=== PATIENT | female | born 1975 | race Hispanic/Latino ===

== ENCOUNTER 2017-12-13 11:47 | Emergency (ER) | payer SELFPAY ==
[2017-12-13 12:22] LABS: #Basophils 0.1 thou/uL (0.0-0.2); #Eosinphils 0.1 thou/uL (0.0-0.7); #Lymphocytes 2.3 thou/uL (1.20-3.40); #Monocytes 0.8 thou/uL (0.11-0.59); #Neutrophils 5.5 thou/uL (1.40-6.50); %Basophils 0.9 % (0.0-1.0); %Eosinophils 1.2 % (0.0-10.0); %Lymphocytes 26.1 % (21.0-51.0); %Monocytes 9.2 % (0.0-10.0); %Neutrophils 62.5 % (42.0-75.0); Hemoglobin 13.2 g/dL (12.0-16.0); Mean Corpuscular Hemoglobin 28.3 pg (27.0-31.0); Mean Corpuscular Volume 85.7 fL (78.0-98.0); Mean Platelet Volume 6.4 fL (7.4-10.4); Platelet Count 344 thou/uL (130-400); RBC Distribution Width 12.7 % (11.5-14.5); Red Blood Cell (RBC) Count 4.66 mill/uL (4.20-5.40); White Blood Cell (WBC) Count 8.9 thou/uL (4.8-10.8)
[2017-12-13 12:34] LABS: ALT (SGPT) 22 U/L (8-55); AST (SGOT) 16 U/L (5-34); Albumin 4.2 g/dL (3.5-5.0); Alkaline Phosphatase 49 U/L (40-150); Anion Gap 12 mmol/L (10-20); BUN (Urea Nitrogen) 9 mg/dL (7.0-18.7); Bilirubin, Total 0.5 mg/dL (0.2-1.2); Calc. Creatinine Clearance 0 mL/min (70-130); Calcium 9.3 mg/dL (7.8-10.44); Carbon Dioxide 24 mmol/L (22-29); Chloride 103 mmol/L (98-107); Estimated GFR-MDRD 88; Globulin 3.1 g/dL (2.4-3.5); Glucose 96 mg/dL (70-105); Potassium 3.6 mmol/L (3.5-5.1); Protein, Total 7.3 g/dL (6.0-8.3); Sodium 135 mmol/L (136-145)
[2017-12-13 13:43] LABS: Bilirubin Negative (Negative); Blood, Urine Trace (Negative); Clarity CLOUDY (Clear); Glucose, Urine (Dipstick) Negative (Negative); Leukocyte Negative (Negative); Nitrite Negative (Negative); Protein, Urine (Dipstick) Negative (Neg-Trace); Specific Gravity, Urine 1.005 (1.002-1.036); Urobilinogen 0.2 mg/dL (0.2-1.0)
[2017-12-13 13:49] LABS: Bacteria/HPF Rare-Few HPF (None Seen); Hyaline Casts/LPF 0-3 HYALINE CAST LPF (0-3 Hyaline); Pathc Cast-AUWi Flag 0.14 (0-2.49); RBC/HPF 0-3 HPF (0-3); WBC/HPF 0-3 HPF (0-3)
--- NOTE | 2017-12-13 14:13 | ULT ---
PELVIC ULTRASOUND: Date: 12/13/17 COMPARISON: None. HISTORY: Vaginal bleeding. TECHNIQUE: Multiplanar Barber scale and color Doppler images were obtained in a transabdominal and transvaginal pe ic ultrasound. Spectral analysis of the Doppler waveforms of the ovaries were performed. FINDINGS: There is a single, live intrauterine . A heart rate was detected at approximately 165 beats/minute. A normal appearing yolk sac is seen. [place]-rump length of the pole is 2.11 cm, wh ich estimates the gestational age at 8 weeks and 5 days. There is a small hypoechoic region in the uterus adjacent to the gestational sac. This is nonspecific but could represent a small fibroid. No free fluid is seen in the pelvis. Both ovaries are normal in size and appearance and demonstrate n ormal internal flow. A dominant follicle is seen on the right measuring 2.8 cm in greatest dimension. IMPRESSION: 1. Single, live intrauterine , with estimated age at 8 weeks and 5 days. 2. Possible small uterine fibroid. POS: [facility]
== END 2017-12-13 14:23 | disposition home or self-care (01) ==
LOC: ERS 11:47
DX: O09.521 Supervision of elderly multigravida, first trimester (principal); O99.89 Other specified diseases and conditions complicating pregnancy, childbirth and the puerperium; R10.9 Unspecified abdominal pain; I10 Essential (primary) hypertension; Z3A.08 8 weeks gestation of pregnancy
CPT/HCPCS: 76856; 80053; 81003; 81015; 84702; 85025; 86900; 86901

== ENCOUNTER → 2018-03-05 | Day surgery (SDC) | payer OTHER ==
[2018-03-05 21:08] LABS: Bilirubin Negative (Negative); Blood, Urine Negative (Negative); Clarity CLEAR (Clear); Glucose, Urine (Dipstick) Negative (Negative); Leukocyte Negative (Negative); Nitrite Negative (Negative); Protein, Urine (Dipstick) Negative (Neg-Trace); Specific Gravity, Urine 1.003 (1.002-1.036); Urobilinogen 0.2 mg/dL (0.2-1.0)
[2018-03-05 21:14] LABS: #Eosinphils 0.2 thou/uL (0.0-0.7); #Monocytes 0.8 thou/uL (0.11-0.59); #Neutrophils 6.6 thou/uL (1.40-6.50); %Basophils 0.4 % (0.0-1.0); %Eosinophils 1.6 % (0.0-10.0); %Lymphocytes 20.6 % (21.0-51.0); %Monocytes 7.9 % (0.0-10.0); %Neutrophils 69.5 % (42.0-75.0); Hemoglobin 12.3 g/dL (12.0-16.0); Mean Corpuscular HGB CONC 34.1 g/dL (32.0-36.0); Mean Corpuscular Hemoglobin 29.2 pg (27.0-31.0); Mean Corpuscular Volume 85.5 fL (78.0-98.0); Mean Platelet Volume 6.6 fL (7.4-10.4); Platelet Count 337 thou/uL (130-400); RBC Distribution Width 12.5 % (11.5-14.5); White Blood Cell (WBC) Count 9.5 thou/uL (4.8-10.8)
[2018-03-05 21:43] LABS: ALT (SGPT) 23 U/L (8-55); AST (SGOT) 15 U/L (5-34); Albumin 3.5 g/dL (3.5-5.0); Alkaline Phosphatase 50 U/L (40-150); Anion Gap 11 mmol/L (10-20); BUN (Urea Nitrogen) 9 mg/dL (7.0-18.7); Bilirubin, Total 0.2 mg/dL (0.2-1.2); Calc. Creatinine Clearance 0 mL/min (70-130); Calcium 9.5 mg/dL (7.8-10.44); Carbon Dioxide 24 mmol/L (22-29); Chloride 106 mmol/L (98-107); Estimated GFR-MDRD 88; Globulin 3.2 g/dL (2.4-3.5); Glucose 116 mg/dL (70-105); Lipase 34 U/L (8-78); Potassium 3.7 mmol/L (3.5-5.1); Protein, Total 6.7 g/dL (6.0-8.3); Sodium 137 mmol/L (136-145)
--- NOTE | 2018-03-05 22:35 | ULT ---
OB ULTRASOUND: 03/05/18 HISTORY: Periumbilical pain. No vaginal bleeding. Real time imaging of the pelvis shows a single viable intrauterine in a breech presentation . The placenta is anterior in location without evidence of previa. heart rate is 144 beats per minute. Amniotic fluid is adequate for this stage of . Per the referring physician request, no measurements were obtained. Imaging of the periumbilical region in area of patient's pain, failed to definitely demonstrate any h ernia. IMPRESSION: 1. Single viable intrauterine in a breech presentation. 2. Placenta which is anterior in location without evidence of previa. POS: [facility]
--- NOTE | 2018-03-07 11:21 | PRG ---
DATE OF SERVICE: 03/05/2018 OB ER ENCOUNTER PRIMARY CUSTOM GRINDER: Ric Hernandez MD CHIEF COMPLAINT: Abdominal pain. HISTORY OF PRESENT ILLNESS: The patient is a 42-year-old, G3, P2 female with an intrauterine at 19 weeks and 5 days, who presented to the emergency room with onset of abdominal pain. She was subsequently cleared down there for any acute conditions requiring immediate attention and was sent to Labor and Delivery for monitoring. The patient reports that she was diagnosed earlier today with an abdominal umbilical hernia and that is where she has been having her primary pain. She reports that she has been told that there is some fat in there, but no bowel. She also reports that she has recently been diagnosed with a cellulitis in her mid abdomen and has been recently placed on antibiotics. The patient denies any uterine cramping or bleeding at this time. The patient denies any recent illness, fever, fall, headache, chest pain, shortness of breath, diarrhea, or constipation. The patient does report some nausea. Denies vomiting. She denies any new rashes, hip problems, knee problems, or muscle weakness. Denies vaginal bleeding, leakage of fluid, or urinary urgency. PAST MEDICAL HISTORY: Chronic hypertension, off medications at this time. PAST SURGICAL HISTORY: section. SOCIAL HISTORY: Denies drug, alcohol, or tobacco use. OB LABS: Unavailable at the time of dictation. ALLERGIES: NO KNOWN DRUG ALLERGIES. MEDICATIONS: None. PHYSICAL EXAMINATION: VITAL SIGNS: Blood pressure 111/60, heart rate is 75, respiratory rate is 20, and temperature 98.4. GENERAL: The patient appears to be in no acute distress. She is alert, oriented, cooperative, and pleasant to interact with. HEENT: Head is normocephalic and atraumatic. LUNGS: Clear to auscultation bilaterally. HEART: Has a regular rate and rhythm. ABDOMEN: Gravid and soft. She does have some tenderness in the periumbilical area that is superficial in nature, and again, this does not appear to be related to the itself. ultrasounds performed in the emergency room showed Doppler heart tones in the 140s and intrauterine in breech presentation with an anterior placenta without previa. LABORATORY DATA: Labs showed a white count of 9.5, hemoglobin 12.3, hematocrit 35.9, and platelets 337,000, sodium of 137, potassium of 3.7, creatinine of 0.73, AST of 15, ALT of 23, lipase of 34. Urine was negative for protein, ketones, nitrites, and leukocyte esterase. ASSESSMENT AND PLAN: The patient is a 42-year-old multiparous female with an intrauterine at 19 weeks and 6 days. She was having some superficial umbilical pain, likely related to a previously diagnosed umbilical hernia, which has been thoroughly evaluated by the emergency room physician downstairs and not seen to be of any urgent medical matter to the patient this evening. The patient is comfortable being discharged to home. She has instructions to follow up with her primary OB, Dr. Ric Hernandez, as scheduled. Job ID: [id number] MTDD
== END ==
LOC: ERS 20:26 → L&D/OP 22:24
PROVIDERS: ATTEND Family Medicine
DX: O99.89 Other specified diseases and conditions complicating pregnancy, childbirth and the puerperium (principal); R10.9 Unspecified abdominal pain; O16.2 Unspecified maternal hypertension, second trimester; O99.612 Diseases of the digestive system complicating pregnancy, second trimester; K42.9 Umbilical hernia without obstruction or gangrene; Z3A.19 19 weeks gestation of pregnancy; Z98.890 Other specified postprocedural states
CPT/HCPCS: 36415; 76815; 80053; 81003; 83690; 84702; 85025; 86900; 86901; 99281

== ENCOUNTER 2018-07-01 14:22 | Day surgery (SDC) | payer OTHER ==
[2018-07-01 14:58] VITALS: BMI 36.7
--- NOTE | 2018-07-01 17:22 | ULT ---
EXAM: NONCONTRAST BIOPHYSICAL PROFILE 07/01/18 HISTORY: Chronic maternal hypertension. COMPARISON: None. TECHNIQUE: Nonstress biophysical profile is performed. FINDINGS: Cervix could not be assessed due to shadowing. Single intrauterine gestation with heart tones of 145 beats per minute. Anterior placenta. Vert ex presentation. Amniotic fluid index is 11.6 cm. heart tones with a rate of 145 beats per minute. Nonstress biophysical profile: tone - 2 breathing - 2 movement - 2 Amniotic fluid - 2 Total score - 8 out of 8. IMPRESSION: Nonstress biophysical profile with a total score of [address] Aldridge was present while the examination was performed. Verbal results were given to Dr. Aldridge by the acid treater. POS: [facility]
--- NOTE | 2018-07-01 18:01 | PRG ---
DATE OF SERVICE: 07/01/2018 PRIMARY OB: Dr. Ric Hernandez. CHIEF COMPLAINT: Nonreactive NST in the office. HISTORY OF PRESENT ILLNESS: The patient is a 42-year-old G3, P2, with an intrauterine at 36 weeks and 4 days with a reported past medical history of chronic hypertension per the nursing staff. The patient denies being on any medications during this ; however, was taking medication in between her last and this one for blood pressure issues. She denies any other complaints today. Denies any fever, fall, headache, chest pain, shortness of breath, vomiting, diarrhea, constipation, hip problems, knee problems, muscle weakness, vaginal bleeding, leakage of fluid, urinary urgency. The patient does report she has been having more nausea throughout this , but more so recently. PAST MEDICAL HISTORY: Chronic hypertension. ALLERGIES: NO KNOWN DRUG ALLERGIES. MEDICATIONS: vitamins. PAST SURGICAL HISTORY: One prior . OBSTETRIC HISTORY: History of preeclampsia with her first . OB LABS: Blood type is A positive. Antibody screen is negative. RPR is nonreactive in the first and third trimester. HIV is nonreactive in the first and third trimester. Hepatitis B surface antigen is negative. She is rubella immune. GC and Chlamydia negative. UDS is negative and she is GBS positive. REVIEW OF SYSTEMS: Per HPI. PHYSICAL EXAMINATION: VITAL SIGNS: Blood pressure is 126/71, heart rate of 92, respiratory rate of 20, saturating 100% on room air, and temperature 98.4. GENERAL: She appears to be in no acute distress. She is alert, oriented, cooperative, and pleasant to interact with. HEAD: Normocephalic and atraumatic. LUNGS: Clear to auscultation bilaterally. HEART: Regular rate and rhythm. ABDOMEN: Soft, gravid, nontender. EXTREMITIES: Nontender and nonedematous. heart tracing performed and NST demonstrating a baseline in the 140s with moderate long-term variability, 10 x 10 accelerations. Toward the end of the strip, it looks like she had a couple 15 x 15 accelerations. Bedside ultrasound was performed for biophysical profile which was 8/8. Normal fluid. ASSESSMENT AND PLAN: The patient is a 42-year-old G3, P2 female with chronic hypertension who was sent to Labor and Delivery for nonreactive NST. The patient has reactive NST and BPP 8/8 here in the Labor and Delivery with normal fluid levels. She has been discharged home with reassurance and has instructions to follow up with her primary OB as scheduled. No evidence of worsening disease at this time. Job ID: [id number]
== END 2018-07-01 16:58 | disposition home health service (06) ==
LOC: L&D/OP 14:22
PROVIDERS: ATTEND Family Medicine
DX: O36.8330 Maternal care for abnormalities of the fetal heart rate or rhythm, third trimester, not applicable or unspecified (principal); O10.013 Pre-existing essential hypertension complicating pregnancy, third trimester; Z3A.36 36 weeks gestation of pregnancy; Z79.899 Other long term (current) drug therapy
CPT/HCPCS: 59025; 76819; 99282

== ENCOUNTER 2018-07-05 13:58 | Day surgery (SDC) | payer OTHER ==
[2018-07-05 14:36] VITALS: BP 140/73; TEMP 99.2; BMI 36.9
--- NOTE | 2018-07-05 14:39 | PDOC.LDHP ---
Labor and Delivery H&P HPI: HPI: This is a 42 yo at 37.1 wks by LMP/1TUS presenting for OTT, N/V. She has a history of cHTN, additionally she had pre-e with first . The patinet states headache starting 2 days ago and then this morning she vomited x2 and felt malaised which led her to come in. She describes headache as a pressure on the left side and nothing really seems to make it better. Denies SOB or swelling. She affirms movement, denies cxns, denies ROM, denies bleeding/discharge. History: OB hx: cHTN, C/S x1, hx of pre-e with 1st PMH: HTN, was on HCTZ before PSH: as above Meds: PNV Soc Hx: denies smoking, alcohol, drugs Blood type: A+ Abs screen neg Hep b neg RPR/HIV neg Rubella immune PAP NILM GC/CT neg Quad neg 1 hr GCT: 138 GBS: positive REVIEW OF SYSTEMS: Gen: no fever, chills, or sweats Neuro: see hpi Eyes: no scotoma ENT: no hearing changes, no sore throat, no runny nose Resp: no cough, no SOB, no wheeze Card: denies chest pain, no palpitations GI: no N/V/D, no abdominal pain : no dysuria, no hematuria MSK: no myalgias, no joint pain/stiffness Heme: no easy bruising/bleeding Skin: no rash, no erythema PHYSICAL EXAMINATION: General: NAD, alert and oriented x3 HEENT: PERRLA, EOMI, normal sclera, oropharynx without erythema or exudate Neck: Supple. Full ROM. Heart/Cardiovascular System: RRR, Cap refill < 3 seconds, no rub, no murmur Lungs/Respiratory System: clear to auscultation bilaterally. No increased work of breathing. Room air. Abdomen/Gastro-Intestinal System: no abdominal tenderness, normal bowel sounds, Gravid Extremeties: Warm extremities. No cyanosis or edema. Neuro: No gross deficits appreciated. CN 2-12 grossly intact Psychiatry: Awake, Alert and cooperative with exam Skin/ Integumentory: No lesions, rashes, or ulcers Musculoskeletal: Full ROM A/P: 42 yo at 37.1 wks by LMP/1TUS # cHTN w/ OTT will order pre-e labs to r/o superimposed pre-e monitor, accels present, no cxns, moderate variability cl/th/high on SVE Allergies/Adverse Reactions: Allergies Allergy/AdvReac Type Severity Reaction Status Date / Time No Known Allergies Allergy Verified 07/01/18 14:59 Addendum - Attending - Attending Attestation Date/Time: 07/05/18 8034 I personally evaluated the patient and discussed the management with Dr. Crooks. I agree with the History, Examination, Assessment and Plan documented above.
[2018-07-05 15:31] LABS: #Basophils 0.1 thou/uL (0.0-0.2); #Lymphocytes 1.1 thou/uL (1.20-3.40); #Monocytes 0.5 thou/uL (0.11-0.59); #Neutrophils 8.7 thou/uL (1.40-6.50); %Basophils 0.6 % (0.0-1.0); %Eosinophils 0.5 % (0.0-10.0); %Lymphocytes 10.8 % (21.0-51.0); %Monocytes 5.1 % (0.0-10.0); %Neutrophils 83.1 % (42.0-75.0); Hemoglobin 12.9 g/dL (12.0-16.0); Mean Corpuscular HGB CONC 34.3 g/dL (32.0-36.0); Mean Corpuscular Hemoglobin 30.4 pg (27.0-31.0); Mean Corpuscular Volume 88.8 fL (78.0-98.0); Mean Platelet Volume 6.4 fL (7.4-10.4); Platelet Count 315 thou/uL (130-400); RBC Distribution Width 12.7 % (11.5-14.5); Red Blood Cell (RBC) Count 4.25 mill/uL (4.20-5.40); White Blood Cell (WBC) Count 10.4 thou/uL (4.8-10.8)
[2018-07-05] MEDS ORDERED: Ondansetron ODT 4 MG TAB PO PRN (15:36)
[2018-07-05] MEDS ORDERED: Acetaminophen 325 MG TAB PO SCH (15:45)
[2018-07-05 16:08] LABS: ALT (SGPT) 12 U/L (8-55); AST (SGOT) 13 U/L (5-34); Albumin 3.3 g/dL (3.5-5.0); Alkaline Phosphatase 91 U/L (40-150); Anion Gap 12 mmol/L (10-20); BUN (Urea Nitrogen) 9 mg/dL (7.0-18.7); Bilirubin, Total 0.3 mg/dL (0.2-1.2); Calc. Creatinine Clearance 140 mL/min (70-130); Calcium 9.1 mg/dL (7.8-10.44); Carbon Dioxide 24 mmol/L (22-29); Chloride 104 mmol/L (98-107); Estimated GFR-MDRD 83; Globulin 2.8 g/dL (2.4-3.5); Glucose 133 mg/dL (70-105); Potassium 4.4 mmol/L (3.5-5.1); Protein, Total 6.1 g/dL (6.0-8.3); Sodium 136 mmol/L (136-145)
[2018-07-05 16:36] LABS: Creatinine, Urine 70.81 mg/dL (47-110); Protein, Urine Random Quant Less than 10 mg/dL (1-14)
--- NOTE | 2018-07-05 16:53 | PDOC.EVN ---
Event Note - Event Note Event Note: plt 315 AST/ALT WNL BPs all WNL, at time of d/c 124/78 Pr/Cr ratio 0.14 Patient states she is feeling much better, tolerated PO intake w/o N/V. Her headache is improved. Labor, pre-e precautions discussed, patient is in understanding Has appt with Dr. Hernandez in 5 days d/c home BPs, labs and urine protien all negative. Dc home with precautions.
== END 2018-07-05 16:56 | disposition home or self-care (01) ==
LOC: L&D/OP 13:58
PROVIDERS: ATTEND Family Medicine
DX: O21.2 Late vomiting of pregnancy (principal); O10.913 Unspecified pre-existing hypertension complicating pregnancy, third trimester; O99.89 Other specified diseases and conditions complicating pregnancy, childbirth and the puerperium; R51 Headache; Z3A.37 37 weeks gestation of pregnancy
CPT/HCPCS: 36415; 80053; 82570; 84156; 85025; 99284; Q0162

== ENCOUNTER 2018-07-17 14:42 | Day surgery (SDC) | payer OTHER ==
[2018-07-17 15:08] VITALS: BMI 37.5
[2018-07-17 15:09] VITALS: BP 133/74; TEMP 98
--- NOTE | 2018-07-17 16:28 | ULT ---
Obstetric sonogram Sonographic biophysical profile Umbilical Doppler exam HISTORY: Third trimester gestation. Nonreactive stress test. FINDINGS: Multiple transabdominal sonographic views show a single intrauterine gestation in cephalic presentation. Cervix is closed and 4.1 cm. Grade 2 placenta is anterior and fundal. Advanced age limits anatomic detail.. Amniotic fluid index 7.0. Four-chamber heart shows motion 139 bpm. Color and spectral Doppler evaluation of the umbilical artery shows the systolic/diastolic ratio to r rigoberto from 2.6-3.0. Real-time sonographic evaluation shows good tone and breathing movements and gross moveme nt. Measurements are as follows: Biparietal diameter 37 weeks 3 days. Head circumference 30 weeks 3 days. Abdominal circumference 38 weeks 6 days. Femur length 39 weeks 0 days. Estimated weight 3,564 g (7 lbs. 14 oz.). IMPRESSION: Single viable intrauterine gestation with estimated gestational age based on today's sono gram of 38 weeks 3 days. Umbilical Doppler evaluation is within normal limits Sonographic biophysical profile scored 8/8.
--- NOTE | 2018-07-23 11:48 | ULT ---
Obstetric sonogram Sonographic biophysical profile Umbilical Doppler exam HISTORY: Third trimester gestation. Nonreactive stress test. FINDINGS: Multiple transabdominal sonographic views show a single intrauterine gestation in cephalic presentation. Cervix is closed and 4.1 cm. Grade 2 placenta is anterior and fundal. Advanced age limits anatomic detail.. Amniotic fluid index 7.0. Four-chamber heart shows motion 139 bpm. Color and spectral Doppler evaluation of the umbilical artery shows the systolic/diastolic ratio to r rigoberto from 2.6-3.0. Real-time sonographic evaluation shows good tone and breathing movements and gross moveme nt. Measurements are as follows: Biparietal diameter 37 weeks 3 days. Head circumference 30 weeks 3 days. Abdominal circumference 38 weeks 6 days. Femur length 39 weeks 0 days. Estimated weight 3,564 g (7 lbs. 14 oz.). IMPRESSION: Single viable intrauterine gestation with estimated gestational age based on today's sono gram of 38 weeks 3 days. Umbilical Doppler evaluation is within normal limits Sonographic biophysical profile scored 8/8. Transcribed Date/Time: 07/23/2018 11:48 AM
== END 2018-07-17 16:45 | disposition home or self-care (01) ==
LOC: L&D/OP 14:42
PROVIDERS: ATTEND Family Medicine
DX: O36.8330 Maternal care for abnormalities of the fetal heart rate or rhythm, third trimester, not applicable or unspecified (principal); O10.913 Unspecified pre-existing hypertension complicating pregnancy, third trimester; O09.523 Supervision of elderly multigravida, third trimester; Z3A.38 38 weeks gestation of pregnancy; Z98.891 History of uterine scar from previous surgery
CPT/HCPCS: 59025; 76700; 76805; 76819; 99282

== ENCOUNTER 2018-07-22 14:21 | Observation (INO) | payer OTHER ==
[2018-07-22 15:11] VITALS: BMI 37.6
--- NOTE | 2018-07-22 16:23 | ULT ---
Exam: Nonstress biophysical profile HISTORY: Nonreactive nonstress test in office. COMPARISON: None TECHNIQUE: Nonstress biophysical profile was performed. Umbilical artery Doppler was also perfo rmed. FINDINGS: Nonstress biophysical profile: tone 2 breathing 2 movements 2 Amniotic fluid 2 Total score 8 out of 8 heart tones with a rate of 153 bpm Amniotic fluid index of 13.6 cm Cephalic presentation. Limited evaluation cervix due to shadowing. Umbilical artery doppler: At placenta: Peak systolic 94.6 cm/s, diastolic 36.3 cm/s RI equals 0.62, SD ratio equals 2.61 Mid umbilical artery: Peak systolic 109.2 cm/s, end-diastolic 43 cm/s RI equals 0.61 SD ratio equals 2.54 At insertion: Peak systolic 107.4 cm/s, end diastolic 43 cm/s RI equals 0.6 SD ratio is 2.5 IMPRESSION: 1. Nonstress biophysical profile score 8 out of 8 2. Umbilical Doppler as described above. Transcribed Date/Time: 07/22/2018 5:55 PM
--- NOTE | 2018-07-22 16:23 | ULT ---
Exam: Nonstress biophysical profile HISTORY: Nonreactive nonstress test in office. COMPARISON: None TECHNIQUE: Nonstress biophysical profile was performed. Umbilical artery Doppler was also perfo rmed. FINDINGS: Nonstress biophysical profile: tone 2 breathing 2 movements 2 Amniotic fluid 2 Total score 8 out of 8 heart tones with a rate of 153 bpm Amniotic fluid index of 13.6 cm Cephalic presentation. Limited evaluation cervix due to shadowing. Umbilical artery doppler: At placenta: Peak systolic 94.6 cm/s, diastolic 36.3 cm/s RI equals 0.62 SD ratio equals 2.61 Mid umbilical artery: Peak systolic 109.2 cm/s, end-diastolic 43 cm/s RI equals 0.61 SD ratio equals 2.54 At insertion: Peak systolic 107.4 cm/s, end diastolic 43 cm/s RI equals 0.6 SD ratio is 2.5 IMPRESSION: 1. Nonstress biophysical profile score 8 out of 8 2. Umbilical Doppler as described above. Transcribed Date/Time: 07/22/2018 7:18 PM
[2018-07-22] MEDS ORDERED: Docusate 100 MG CAP PO PRN (16:47)
[2018-07-22] MEDS ORDERED: Ondansetron PF 4 MG/2 ML Vial IVP PRN (16:47)
[2018-07-22 19:00] LABS: Hemoglobin 12.6 g/dL (12.0-16.0); Mean Corpuscular HGB CONC 33.9 g/dL (32.0-36.0); Mean Corpuscular Hemoglobin 29.7 pg (27.0-31.0); Mean Corpuscular Volume 87.6 fL (78.0-98.0); Mean Platelet Volume 6.3 fL (7.4-10.4); Platelet Count 343 thou/uL (130-400); RBC Distribution Width 12.5 % (11.5-14.5); Red Blood Cell (RBC) Count 4.26 mill/uL (4.20-5.40); White Blood Cell (WBC) Count 9.6 thou/uL (4.8-10.8)
[2018-07-22 19:53] LABS: Syphilis Antibody Nonreactive (Nonreactive); Syphilis Antibody Index 0.03 S/CO (<1.00 Non-Reactive)
[2018-07-22 19:54] LABS: HBSAg Index 0.29 S/CO (0-0.99); Hep B Surf Ag Non-Reactive S/CO (NonReactive)
[2018-07-22] MEDS ORDERED: diphenhydrAMINE 25 MG CAP PO PRN (20:17)
[2018-07-22 20:29] LABS: Bilirubin Negative (Negative); Blood, Urine Negative (Negative); Clarity CLEAR (Clear); Glucose, Urine (Dipstick) Negative (Negative); Leukocyte Negative (Negative); Nitrite Negative (Negative); Protein, Urine (Dipstick) Negative (Neg-Trace); pH, Urine 6.5 (5.0-9.0)
[2018-07-22 20:31] LABS: Bacteria/HPF None Seen HPF (None Seen); Hyaline Casts/LPF 0-3 HYALINE CAST LPF (0-3 Hyaline); RBC/HPF 0-3 HPF (0-3); Squamous Epithelial 0-3 HPF (0-3); WBC/HPF 0-3 HPF (0-3)
[2018-07-22] MEDS: Lactated Ringer's 1,000 ML IV SCH ×2 (21:55→23:37)
[2018-07-23 08:00] VITALS: BP 139/71; TEMP 97.8
== END 2018-07-23 10:05 | disposition home health service (06) ==
LOC: L&D/OP 14:21 → L&D 19:46
PROVIDERS: ADMIT Family Medicine; ATTEND Family Medicine
DX: O36.8330 Maternal care for abnormalities of the fetal heart rate or rhythm, third trimester, not applicable or unspecified (principal); O99.820 Streptococcus B carrier state complicating pregnancy; O09.523 Supervision of elderly multigravida, third trimester; O10.913 Unspecified pre-existing hypertension complicating pregnancy, third trimester; Z3A.39 39 weeks gestation of pregnancy; Z79.899 Other long term (current) drug therapy; Z98.891 History of uterine scar from previous surgery
CPT/HCPCS: 36415; 59025; 76700; 76819; 81001; 85027; 86780; 86850; 86900; 86901; 87340; 96360; 96361; 99285; G0378; Q0163

== ENCOUNTER 2018-07-28 11:20 | Day surgery (SDC) | payer OTHER ==
[2018-07-28 11:51] VITALS: BMI 39.4
--- NOTE | 2018-07-28 13:55 | ULT ---
US Biophysical Profile History: [Oligohydramnios. Nonreactive nonstress test analysis.] Comparison: Biophysical profile July 22, 2018 Findings: Real-time grayscale and color evaluation of the gravid uterus was performed. The amniotic f luid index measures 6.1. The biophysical profile score is 8/8. Impression: Biophysical profile score of 8/8. Amniotic fluid index of 6.1.
== END 2018-07-28 13:20 | disposition home or self-care (01) ==
LOC: L&D/OP 11:20
PROVIDERS: ATTEND Family Medicine
DX: O36.8330 Maternal care for abnormalities of the fetal heart rate or rhythm, third trimester, not applicable or unspecified (principal); O41.03X0 Oligohydramnios, third trimester, not applicable or unspecified; O10.913 Unspecified pre-existing hypertension complicating pregnancy, third trimester; O09.523 Supervision of elderly multigravida, third trimester; Z79.899 Other long term (current) drug therapy; Z3A.40 40 weeks gestation of pregnancy
CPT/HCPCS: 59025; 76819; 99282

== ENCOUNTER 2018-07-29 10:54 | Inpatient (IN) | payer OTHER ==
[2018-07-29] MEDS: Lactated Ringer's 1,000 ML IV SCH ×2 (11:00→13:26)
[2018-07-29] MEDS ORDERED: Bicitra 30 ML UDCUP PO SCH (11:53)
[2018-07-29] MEDS ORDERED: CEFAZOLIN 2 GM in Premix Bag 1 BAG IVPB SCH (11:53)
[2018-07-29] MEDS ORDERED: Ondansetron PF 4 MG/2 ML Vial IVP PRN ×3 (11:53→15:20)
[2018-07-29] MEDS ORDERED: Promethazine HCl 25 MG/ML VIAL IM PRN ×2 (11:53→15:19)
[2018-07-29 12:03] LABS: Hemoglobin 13.1 g/dL (12.0-16.0); Mean Corpuscular HGB CONC 33.1 g/dL (32.0-36.0); Mean Corpuscular Hemoglobin 28.9 pg (27.0-31.0); Mean Corpuscular Volume 87.4 fL (78.0-98.0); Mean Platelet Volume 6.5 fL (7.4-10.4); Platelet Count 331 thou/uL (130-400); RBC Distribution Width 12.6 % (11.5-14.5); Red Blood Cell (RBC) Count 4.52 mill/uL (4.20-5.40); White Blood Cell (WBC) Count 9.5 thou/uL (4.8-10.8)
[2018-07-29 12:46] LABS: HBSAg Index 0.28 S/CO (0-0.99); Hep B Surf Ag Non-Reactive S/CO (NonReactive); Syphilis Antibody Nonreactive (Nonreactive); Syphilis Antibody Index 0.03 S/CO (<1.00 Non-Reactive)
[2018-07-29] MEDS ORDERED: Oxytocin 10 UNITS/ML VIAL ONE (13:39)
[2018-07-29] MEDS ORDERED: PHENYLEPHRINE-NS 100 MCG/ML 10 ML SYRINGE ONE (13:39)
[2018-07-29] MEDS ORDERED: MORPHINE 5 MG/10 ML PF VIAL ONE (13:39)
[2018-07-29] MEDS ORDERED: Midazolam HCl 2 mg/2 ml Vial ONE (14:19)
[2018-07-29] MEDS ORDERED: Fentanyl 100 MCG/2 ML VIAL ONE ×3 (14:23→14:43)
[2018-07-29] MEDS ORDERED: Ketamine 50 MG/ML (10ML VIAL) ONE (14:47)
[2018-07-29] MEDS ORDERED: Promethazine HCl 25 MG SUPP PR PRN (15:19)
[2018-07-29] MEDS ORDERED: Eucerin (Mineral Oil/Petrolatum,White) 30 gm Jar TOP PRN (15:19)
[2018-07-29] MEDS ORDERED: Naloxone HCl 0.4 mg/ml Vial IVP PRN ×2 (15:19)
[2018-07-29] MEDS ORDERED: Ondansetron HCl/PF 4 MG/2 ML Vial IVP PRN (15:19)
[2018-07-29] MEDS ORDERED: HYDROmorphone 2 MG/ML VIAL SLOW IVP PRN (15:19)
[2018-07-29] MEDS ORDERED: diphenhydrAMINE 50 MG/ML VIAL IVP PRN (15:19)
[2018-07-29] MEDS ORDERED: Meperidine HCl/PF 25 MG/ML VIAL SLOW IVP PRN (15:19)
[2018-07-29] MEDS ORDERED: Naloxone HCl 0.4 mg/ml Vial IV PRN (15:19)
[2018-07-29] MEDS ORDERED: L&D-Morphine 4 MG/ML VIAL SLOW IVP PRN (15:19)
[2018-07-29] MEDS ORDERED: Bisacodyl 10 MG SUPP PR PRN (15:20)
[2018-07-29] MEDS ORDERED: NS / Oxytocin 40 units/1000ml 1,000 ML IV SCH (15:20)
[2018-07-29] MEDS ORDERED: Lanolin Ointment 7 GM TUBE TOP PRN (15:20)
[2018-07-29] MEDS ORDERED: diphenhydrAMINE 25 MG CAP PO PRN (15:20)
[2018-07-29] MEDS ORDERED: Communication Order-Pharmacy FS SCH (15:30)
[2018-07-29] MEDS ORDERED: Ketorolac Tromethamine 30 MG/ML VIAL IVP SCH (15:30)
[2018-07-29 16:24] VITALS: BMI 38.2
[2018-07-29] MEDS: Docusate Calcium (SURFAK) 240 MG CAP PO SCH (19:06)
[2018-07-29] MEDS: Ferrous Sulfate 325 MG TAB PO SCH (19:06)
[2018-07-29] MEDS: Ibuprofen 800 MG TAB PO SCH (19:07)
[2018-07-29] MEDS: Ketorolac Tromethamine 30 MG/ML VIAL IVP PRN (19:09)
--- NOTE | 2018-07-29 22:51 | OP ---
DATE OF PROCEDURE: 07/29/2018 RESIDENT SURGEON: Elver Crooks MD PROCEDURE PERFORMED: Repeat low-transverse section. PREOPERATIVE DIAGNOSES: 1. Term intrauterine , 40 and 4 weeks. 2. Previous section. 3. Advanced maternal age. 4. Group B streptococcus positive. POSTOPERATIVE DIAGNOSES: 1. Term intrauterine , 40 and 4 weeks. 2. Previous section. 3. Advanced maternal age. 4. Group B streptococcus positive. ANESTHESIA: Spinal. INDICATIONS FOR PROCEDURE: This is a 42-year-old, G3, P2 female at 40 and 4 weeks' gestation, who presented for a scheduled repeat section. DESCRIPTION OF PROCEDURE: After risks, benefits, and alternatives were explained to the patient, she gave informed consent. Preoperative antibiotics included 2 g of cefazolin IV. The patient was taken to the operating room and spinal anesthesia was initiated. She was placed in supine position with a left tilt, prepped and draped in the usual sterile fashion. A Pfannenstiel incision was made with a scalpel and carried down to the level of the fascia, which was sharply nicked. The fascial edges were extended bilaterally with [place] scissors. The inferior and superior edges of the cut fascial edges were elevated with Roney clamps and the underlying rectus muscle was sharply and bluntly dissected free. The recti were divided digitally and retracted manually. The peritoneum was entered bluntly and retracted manually. A bladder blade was placed. A low transverse score was made with a scalpel. Clear fluid was seen. Hysterotomy was extended manually. The infant was noted to be vertex and was easily delivered by fundal pressure. Mouth and nares were bulb suctioned. Cord was clamped and cut, and grossly normal female was handed to the waiting nurse. Cord blood was obtained. Placenta was manually extracted and found to be intact with a three-vessel cord and discarded. The uterus was externalized and the endometrium was curetted with a dry lap. The bladder blade was replaced and the uterus was closed with a running 0 Vicryl suture. Two [id number] knots with 0 Vicryl were placed. The abdomen was irrigated with saline and suctioned free of clots. The uterus was internalized and the hysterotomy was again noted to be hemostatic. The peritoneum was closed with 0 Vicryl suture. Bleeders on the rectus muscle were bovied and found to be hemostatic. The fascia was closed with a running nonlocking 0 PDS suture. The subcutaneous tissue was irrigated and there were no bleeders. The subcu was closed with 3 simple interrupted 3-0 Vicryl knots. Skin was approximated with christina and pressure dressing was placed. All counts were correct. The patient tolerated the procedure well, and was taken to the recovery room in stable condition. ESTIMATED BLOOD LOSS: 400 mL. COMPLICATIONS: None. SPECIMENS: Cord blood sent to lab for blood type. FINDINGS: 1. Grossly normal female infant. 2. Grossly normal placenta with three-vessel cord and discarded. DRAINS: Bustamante to gravity, draining clear urine. Job ID: [id number] MTDD
[2018-07-29] MEDS ORDERED: Sodium Chloride 0.9% 10 ML ONE (23:31)
[2018-07-30] MEDS ORDERED: Meperidine HCl/PF 25 MG/ML VIAL IM PRN (03:30)
[2018-07-30] MEDS ORDERED: HYDROcodone/Acetaminophen 5/325 mg Tablet PO PRN (03:30)
[2018-07-30] MEDS: Ketorolac Tromethamine 30 MG/ML VIAL IVP PRN (04:04)
[2018-07-30 07:35] LABS: Hemoglobin 10.6 g/dL (12.0-16.0); Mean Corpuscular HGB CONC 34.2 g/dL (32.0-36.0); Mean Corpuscular Volume 87.9 fL (78.0-98.0); Mean Platelet Volume 6.5 fL (7.4-10.4); Platelet Count 276 thou/uL (130-400); RBC Distribution Width 12.4 % (11.5-14.5); Red Blood Cell (RBC) Count 3.51 mill/uL (4.20-5.40); White Blood Cell (WBC) Count 12.5 thou/uL (4.8-10.8)
[2018-07-30] MEDS: Simethicone Chewable 80 MG TAB PO PRN ×2 (09:00→21:33)
[2018-07-30] MEDS: HYDROcodone/Acetaminophen 5/325 mg Tablet PO PRN ×3 (09:00→20:20)
[2018-07-30] MEDS: Docusate Calcium (SURFAK) 240 MG CAP PO SCH ×2 (09:00→21:33)
[2018-07-30] MEDS: Prenatal Vitamin 1 TAB PO SCH (09:00)
[2018-07-30] MEDS: Ferrous Sulfate 325 MG TAB PO SCH ×2 (09:39→21:00)
[2018-07-30] MEDS: Ibuprofen 800 MG TAB PO SCH ×3 (09:39→21:33)
[2018-07-31] MEDS: Ibuprofen 800 MG TAB PO SCH ×3 (05:57→22:00)
[2018-07-31] MEDS: Docusate Calcium (SURFAK) 240 MG CAP PO SCH ×2 (08:38→22:00)
[2018-07-31] MEDS: Prenatal Vitamin 1 TAB PO SCH (08:38)
[2018-07-31] MEDS: Simethicone Chewable 80 MG TAB PO PRN ×2 (08:38→22:00)
[2018-07-31] MEDS: HYDROcodone/Acetaminophen 5/325 mg Tablet PO PRN (08:39)
[2018-07-31] MEDS: Ferrous Sulfate 325 MG TAB PO SCH ×2 (12:09→22:11)
[2018-08-01] MEDS: Ibuprofen 800 MG TAB PO SCH ×2 (05:11→13:41)
[2018-08-01] MEDS: Ferrous Sulfate 325 MG TAB PO SCH (08:42)
[2018-08-01] MEDS: Prenatal Vitamin 1 TAB PO SCH (08:57)
[2018-08-01] MEDS: Docusate Calcium (SURFAK) 240 MG CAP PO SCH (08:57)
[2018-08-01 11:42] VITALS: BP 132/65; TEMP 98.5
== END 2018-08-01 17:25 | disposition home or self-care (01) | DRG 788 ==
LOC: L&D 10:54 → 3SW 17:22
PROVIDERS: ADMIT Family Medicine; ATTEND Family Medicine
PROC: 10D00Z1 Extraction of Products of Conception, Low, Open Approach (ICD-10-PCS; principal; 2018-07-29)
DX: O34.211 Maternal care for low transverse scar from previous cesarean delivery (principal); O48.0 Post-term pregnancy; Z3A.40 40 weeks gestation of pregnancy; Z37.0 Single live birth; O99.824 Streptococcus B carrier state complicating childbirth
CPT/HCPCS: 36415; 51702; 59025; 76819; 85027; 86780; 86850; 86900; 86901; 87340; 99282; J0690; J1885; J2250; J2270; J2405; J2590; J3010; J7050; Q0163

== ENCOUNTER 2018-08-23 07:25 | Emergency (ER) | payer OTHER ==
[2018-08-23 07:57] LABS: #Basophils 0.1 thou/uL (0.0-0.2); #Eosinphils 0.2 thou/uL (0.0-0.7); #Lymphocytes 1.6 thou/uL (1.20-3.40); #Monocytes 0.8 thou/uL (0.11-0.59); #Neutrophils 8.6 thou/uL (1.40-6.50); %Basophils 0.7 % (0.0-1.0); %Eosinophils 2.1 % (0.0-10.0); %Lymphocytes 14.3 % (21.0-51.0); %Monocytes 6.9 % (0.0-10.0); %Neutrophils 75.9 % (42.0-75.0); Hemoglobin 12.5 g/dL (12.0-16.0); Mean Corpuscular HGB CONC 32.4 g/dL (32.0-36.0); Mean Corpuscular Hemoglobin 28.7 pg (27.0-31.0); Mean Corpuscular Volume 88.6 fL (78.0-98.0); Platelet Count 428 thou/uL (130-400); RBC Distribution Width 11.9 % (11.5-14.5); Red Blood Cell (RBC) Count 4.34 mill/uL (4.20-5.40); White Blood Cell (WBC) Count 11.3 thou/uL (4.8-10.8)
[2018-08-23 08:17] LABS: Bilirubin Negative (Negative); Blood, Urine Large (Negative); Clarity CLEAR (Clear); Glucose, Urine (Dipstick) Negative (Negative); Leukocyte Small (Negative); Nitrite Negative (Negative); Protein, Urine (Dipstick) Negative (Neg-Trace); Specific Gravity, Urine 1.018 (1.002-1.036); Urobilinogen 0.2 mg/dL (0.2-1.0)
[2018-08-23 08:21] LABS: ALT (SGPT) 17 U/L (8-55); AST (SGOT) 17 U/L (5-34); Alkaline Phosphatase 85 U/L (40-150); Anion Gap 13 mmol/L (10-20); BUN (Urea Nitrogen) 13 mg/dL (7.0-18.7); Bilirubin, Total 0.5 mg/dL (0.2-1.2); Calc. Creatinine Clearance 0 mL/min (70-130); Calcium 9.8 mg/dL (7.8-10.44); Carbon Dioxide 30 mmol/L (22-29); Chloride 100 mmol/L (98-107); Estimated GFR-MDRD 90; Globulin 3.7 g/dL (2.4-3.5); Glucose 123 mg/dL (70-105); Potassium 3.5 mmol/L (3.5-5.1); Protein, Total 7.7 g/dL (6.0-8.3); Sodium 139 mmol/L (136-145)
[2018-08-23 08:29] LABS: RBC/HPF 0-3 HPF (0-3); Squamous Epithelial 0-3 HPF (0-3); WBC/HPF 0-3 HPF (0-3)
[2018-08-23 08:30] LABS: Bacteria/HPF None Seen HPF (None Seen); Hyaline Casts/LPF 0-3 HYALINE CAST LPF (0-3 Hyaline)
--- NOTE | 2018-08-23 10:00 | CT ---
CT Abdomen Pelvis W Con: 08/23/2018 9:10 AM CLINICAL INFORMATION: pain that began Saturday. Her was on July 29 and her stap les removed Saturday. COMPARISON: None. TECHNIQUE: Multiple contiguous axial images were obtained and a CT of the abdomen and pelvis with IV contrast. C oronal reformats were performed. FINDINGS: Lower Chest: within normal limits. Abdomen: Liver: within normal limits. Bile Ducts: Normal caliber. Gallbladder: No calcified gallstones. Normal caliber wall. Pancreas: within normal limits. Spleen: within normal limits. Adrenals: within normal limits. Kidneys: within normal limits. Pelvis: Reproductive Organs: A 3.2 cm hypodensity is seen in the right adnexal region which likely represents an ovarian cyst/follicle. There is subtle stranding changes adjacent to this ovary. Ureters: within normal limits. Bladder: within normal limits. Peritoneum: No ascites or free air, no fluid collection. Bowel: Normal caliber. Mesentery and Retroperitoneum: No enlarged mesenteric or retroperitoneal lymph nodes. Vessels: Normal. Abdominal Wall: within normal limits. Bones: within normal limits. IMPRESSION: Hypodensity in the right adnexal region likely represents an ovarian cyst/follicle. However, strandin g changes are seen adjacent to this follicle/cyst which are nonspecific. Correlate with white blood cell count.
[2018-08-23] MEDS ORDERED: Morphine 4 MG/ML VIAL ONE (10:41)
[2018-08-23] MEDS ORDERED: Ondansetron PF 4 MG/2 ML Vial ONE (10:45)
[2018-08-23] MEDS ORDERED: ISOVUE-370 76%-LOCM 1 ML ONE (15:45)
== END 2018-08-23 10:50 | disposition home or self-care (01) ==
LOC: ERS 07:25
DX: G89.18 Other acute postprocedural pain (principal); I10 Essential (primary) hypertension
CPT/HCPCS: 36415; 74177; 80053; 81003; 81015; 85025; 96374; J2270; J2405; Q9966

== ENCOUNTER 2020-08-28 18:29 | Inpatient (IN) | payer OTHER ==
[2020-08-28 22:06] VITALS: BMI 34.4
[2020-08-28] MEDS ORDERED: Acetaminophen 325 MG TAB PO PRN (23:51)
[2020-08-28] MEDS ORDERED: Ondansetron PF 4 MG/2 ML Vial IVP PRN (23:51)
[2020-08-29 00:11] LABS: Troponin I 0.038 ng/mL (< 0.028)
[2020-08-29 04:31] LABS: #Basophils 0.1 thou/uL (0.0-0.2); #Eosinphils 0.1 thou/uL (0.0-0.7); #Lymphocytes 1.3 thou/uL (1.20-3.40); #Monocytes 0.6 thou/uL (0.11-0.59); #Neutrophils 5.5 thou/uL (1.40-6.50); %Basophils 0.9 % (0.0-1.0); %Eosinophils 1.2 % (0.0-10.0); %Lymphocytes 17.6 % (21.0-51.0); %Monocytes 7.9 % (0.0-10.0); %Neutrophils 72.4 % (42.0-75.0); Hemoglobin 14.7 g/dL (12.0-16.0); Mean Corpuscular HGB CONC 32.8 g/dL (32.0-36.0); Mean Corpuscular Hemoglobin 29.1 pg (27.0-31.0); Mean Corpuscular Volume 88.5 fL (78.0-98.0); Mean Platelet Volume 6.7 fL (7.4-10.4); Platelet Count 343 thou/uL (130-400); RBC Distribution Width 12.9 % (11.5-14.5); Red Blood Cell (RBC) Count 5.06 mill/uL (4.20-5.40); White Blood Cell (WBC) Count 7.6 thou/uL (4.8-10.8)
[2020-08-29 04:52] LABS: Troponin I 0.035 ng/mL (< 0.028)
[2020-08-29 04:53] LABS: Anion Gap 15 mmol/L (10-20); BUN (Urea Nitrogen) 15 mg/dL (7.0-18.7); Calc. Creatinine Clearance 128 mL/min (70-130); Calcium 8.8 mg/dL (7.8-10.44); Carbon Dioxide 26 mmol/L (22-29); Chloride 98 mmol/L (98-107); Glucose 114 mg/dL (70-105); Magnesium 1.9 mg/dL (1.6-2.6); Potassium 3.7 mmol/L (3.5-5.1); Sodium 135 mmol/L (136-145)
[2020-08-29] MEDS ORDERED: Magnesium 2 GM/50 ML 2 GM in Premix Bag 1 BAG IVPB SCH (07:15)
[2020-08-29] MEDS: Lisinopril/Hydrochlorothiazide 20/25 mg Tablet PO SCH (08:34)
[2020-08-29] MEDS: Aspirin 81 mg Enteric Coated Tablet PO SCH (08:35)
[2020-08-29] MEDS: Cholecalciferol 1,000 UNITS (25 MCG) TAB PO SCH (08:35)
[2020-08-29] MEDS: Ascorbic Acid 500 mg Chewable Tablet PO SCH (08:35)
[2020-08-29] MEDS ORDERED: Zinc Sulfate 220 MG CAP PO SCH (09:00)
[2020-08-29] MEDS: Ferrous Sulfate 325 MG TAB PO SCH (21:28)
[2020-08-30 05:42] LABS: #Eosinphils 0.1 thou/uL (0.0-0.7); #Lymphocytes 1.8 thou/uL (1.20-3.40); #Monocytes 0.7 thou/uL (0.11-0.59); #Neutrophils 3.3 thou/uL (1.40-6.50); %Basophils 0.7 % (0.0-1.0); %Eosinophils 2.3 % (0.0-10.0); %Monocytes 11.6 % (0.0-10.0); %Neutrophils 55.4 % (42.0-75.0); Hemoglobin 14.2 g/dL (12.0-16.0); Mean Corpuscular HGB CONC 32.9 g/dL (32.0-36.0); Mean Corpuscular Hemoglobin 29.3 pg (27.0-31.0); Mean Corpuscular Volume 89.3 fL (78.0-98.0); Mean Platelet Volume 6.4 fL (7.4-10.4); Platelet Count 333 thou/uL (130-400); RBC Distribution Width 12.9 % (11.5-14.5); Red Blood Cell (RBC) Count 4.84 mill/uL (4.20-5.40)
[2020-08-30 06:11] LABS: Anion Gap 10 mmol/L (10-20); BUN (Urea Nitrogen) 18 mg/dL (7.0-18.7); Calc. Creatinine Clearance 138 mL/min (70-130); Calcium 8.3 mg/dL (7.8-10.44); Carbon Dioxide 31 mmol/L (22-29); Chloride 98 mmol/L (98-107); Glucose 121 mg/dL (70-105); Magnesium 2.1 mg/dL (1.6-2.6); Potassium 3.3 mmol/L (3.5-5.1); Sodium 136 mmol/L (136-145)
[2020-08-30] MEDS ORDERED: Losartan/Hydrochlorothiazide 100 mg/25 mg Tablet PO SCH (09:00)
[2020-08-30] MEDS: Aspirin 81 mg Enteric Coated Tablet PO SCH (09:00)
[2020-08-30] MEDS: Prenatal Vitamin 1 TAB PO SCH (09:00)
[2020-08-30] MEDS: Ferrous Sulfate 325 MG TAB PO SCH ×2 (09:00→19:02)
[2020-08-30] MEDS: Cholecalciferol 1,000 UNITS (25 MCG) TAB PO SCH (09:01)
[2020-08-30] MEDS: Zinc Sulfate 220 MG CAP PO SCH (09:01)
[2020-08-30] MEDS: Ascorbic Acid 500 mg Chewable Tablet PO SCH (09:01)
[2020-08-30] MEDS: Lisinopril/Hydrochlorothiazide 20/25 mg Tablet PO SCH (09:01)
[2020-08-30] MEDS ORDERED: Potassium Chloride 20 MEQ TAB PO SCH (16:15)
[2020-08-31 06:17] LABS: #Basophils 0.1 thou/uL (0.0-0.2); #Eosinphils 0.2 thou/uL (0.0-0.7); #Monocytes 0.5 thou/uL (0.11-0.59); #Neutrophils 3.1 thou/uL (1.40-6.50); %Basophils 1.1 % (0.0-1.0); %Eosinophils 3.2 % (0.0-10.0); %Lymphocytes 33.8 % (21.0-51.0); %Neutrophils 52.9 % (42.0-75.0); Hemoglobin 13.3 g/dL (12.0-16.0); Mean Corpuscular HGB CONC 33.2 g/dL (32.0-36.0); Mean Corpuscular Hemoglobin 29.7 pg (27.0-31.0); Mean Corpuscular Volume 89.6 fL (78.0-98.0); Platelet Count 308 thou/uL (130-400); Red Blood Cell (RBC) Count 4.49 mill/uL (4.20-5.40); White Blood Cell (WBC) Count 5.8 thou/uL (4.8-10.8)
[2020-08-31 06:34] LABS: Anion Gap 13 mmol/L (10-20); BUN (Urea Nitrogen) 14 mg/dL (7.0-18.7); Calc. Creatinine Clearance 141 mL/min (70-130); Calcium 8.3 mg/dL (7.8-10.44); Carbon Dioxide 27 mmol/L (22-29); Chloride 101 mmol/L (98-107); Glucose 115 mg/dL (70-105); Potassium 3.7 mmol/L (3.5-5.1); Sodium 137 mmol/L (136-145)
[2020-08-31] MEDS: Ascorbic Acid 500 mg Chewable Tablet PO SCH (09:33)
[2020-08-31] MEDS: Cholecalciferol 1,000 UNITS (25 MCG) TAB PO SCH (09:34)
[2020-08-31] MEDS: Ferrous Sulfate 325 MG TAB PO SCH ×2 (09:34→20:31)
[2020-08-31] MEDS: Lisinopril/Hydrochlorothiazide 20/25 mg Tablet PO SCH (09:34)
[2020-08-31] MEDS: Aspirin 81 mg Enteric Coated Tablet PO SCH (09:34)
[2020-08-31] MEDS: Prenatal Vitamin 1 TAB PO SCH (09:34)
[2020-08-31] MEDS: Zinc Sulfate 220 MG CAP PO SCH (09:34)
[2020-09-01] MEDS: Ascorbic Acid 500 mg Chewable Tablet PO SCH (07:55)
[2020-09-01] MEDS: Cholecalciferol 1,000 UNITS (25 MCG) TAB PO SCH (07:55)
[2020-09-01] MEDS: Prenatal Vitamin 1 TAB PO SCH (07:55)
[2020-09-01] MEDS: Zinc Sulfate 220 MG CAP PO SCH (07:55)
[2020-09-01] MEDS: Aspirin 81 mg Enteric Coated Tablet PO SCH (07:55)
[2020-09-01] MEDS: Lisinopril/Hydrochlorothiazide 20/25 mg Tablet PO SCH (07:55)
[2020-09-01] MEDS: Ferrous Sulfate 325 MG TAB PO SCH (07:55)
[2020-09-01 14:22] VITALS: BP 122/70; TEMP 98.6
== END 2020-09-01 16:25 | disposition home or self-care (01) | DRG 776 ==
LOC: 2SW 18:29 → OBSVTOIN 08-31 13:02
PROVIDERS: ADMIT Internal Medicine; ATTEND Internal Medicine
PROC: 8E0ZXY6 Isolation (ICD-10-PCS; principal; 2020-08-31)
DX: O99.893 Other specified diseases and conditions complicating puerperium (principal); U07.1 COVID-19; J12.82 Pneumonia due to coronavirus disease 2019; O98.53 Other viral diseases complicating the puerperium; I31.3 Pericardial effusion (noninflammatory); O10.93 Unspecified pre-existing hypertension complicating the puerperium; O99.53 Diseases of the respiratory system complicating the puerperium; R77.8 Other specified abnormalities of plasma proteins; E83.42 Hypomagnesemia; R00.0 Tachycardia, unspecified; E87.6 Hypokalemia; T50.2X5A Adverse effect of carbonic-anhydrase inhibitors, benzothiadiazides and other diuretics, initial encounter; Z79.899 Other long term (current) drug therapy; Z82.49 Family history of ischemic heart disease and other diseases of the circulatory system; Z83.3 Family history of diabetes mellitus
CPT/HCPCS: 36415; 80048; 83735; 84443; 84484; 85025; 93005; 93010; 93306; 96374; G0378; J3475